=== PATIENT | female | born 1995 | race Two or more races ===

== ENCOUNTER → 2021-11-04 09:08 | Outpatient (BNVA) | payer OTHER, SELFPAY | PROVIDERS: Visit Provider Physician Assistant | DX: S83.194A Other dislocation of right knee, initial encounter (principal); S82.151A Displaced fracture of right tibial tuberosity, initial encounter for closed fracture; W18.30XA Fall on same level, unspecified, initial encounter | CPT/HCPCS: 73564; 99204 ==

== ENCOUNTER → 2023-02-26 13:40 | Outpatient (BNVA) | payer OTHER, SELFPAY | PROVIDERS: Visit Provider Physician Assistant Medical | DX: S50.862A Insect bite (nonvenomous) of left forearm, initial encounter (principal); W57.XXXA Bitten or stung by nonvenomous insect and other nonvenomous arthropods, initial encounter | CPT/HCPCS: 99202 ==

== ENCOUNTER → 2023-06-22 10:33 | Outpatient (BNVA) | payer OTHER, SELFPAY | PROVIDERS: Visit Provider Internal Medicine | DX: S80.01XA Contusion of right knee, initial encounter (principal); W01.0XXA Fall on same level from slipping, tripping and stumbling without subsequent striking against object, initial encounter | CPT/HCPCS: 73562; 99203 ==

== ENCOUNTER → 2023-06-27 11:32 | Outpatient (BNVA) | payer OTHER, SELFPAY | PROVIDERS: Visit Provider Internal Medicine | DX: S80.01XA Contusion of right knee, initial encounter (principal); W01.0XXA Fall on same level from slipping, tripping and stumbling without subsequent striking against object, initial encounter | CPT/HCPCS: 99213 ==

== ENCOUNTER → 2023-07-04 10:31 | Outpatient (BNVA) | payer OTHER, SELFPAY | PROVIDERS: Visit Provider Internal Medicine | DX: S80.01XA Contusion of right knee, initial encounter (principal); W01.0XXA Fall on same level from slipping, tripping and stumbling without subsequent striking against object, initial encounter | CPT/HCPCS: 99213 ==

== ENCOUNTER → 2023-07-11 11:18 | Outpatient (BNVA) | payer OTHER, SELFPAY | PROVIDERS: Visit Provider Internal Medicine | DX: S80.01XA Contusion of right knee, initial encounter (principal); W01.0XXA Fall on same level from slipping, tripping and stumbling without subsequent striking against object, initial encounter | CPT/HCPCS: 99213 ==

== ENCOUNTER → 2023-07-23 11:38 | Outpatient (BNVA) | payer OTHER, SELFPAY | PROVIDERS: Visit Provider Internal Medicine | DX: S80.01XD Contusion of right knee, subsequent encounter (principal); W01.0XXD Fall on same level from slipping, tripping and stumbling without subsequent striking against object, subsequent encounter | CPT/HCPCS: 99213 ==

== ENCOUNTER → 2023-08-01 14:12 | Outpatient (BNVA) | payer OTHER, SELFPAY | PROVIDERS: Visit Provider Internal Medicine | DX: S80.01XD Contusion of right knee, subsequent encounter (principal); W01.0XXD Fall on same level from slipping, tripping and stumbling without subsequent striking against object, subsequent encounter | CPT/HCPCS: 99213 ==

== ENCOUNTER 2023-08-01 17:49 | Outpatient (REF) | payer OTHER, SELFPAY ==
--- NOTE | ~2023-08-01 | MR_ITS ---
EXAMINATION: MR KNEE WITHOUT CONTRAST, RIGHT CLINICAL INFORMATION: Right lateral knee pain. COMPARISON: 06/22/2023 TECHNIQUE: MRI of the knee without contrast was performed using routine sequences on a high-field scanner. FINDINGS: MENISCI: Medial Meniscus: Intact Lateral Meniscus: Discoid morphology. No tears. LIGAMENTS: Cruciate: Intact Collateral: Intact EXTENSOR MECHANISM: Quadriceps and patellar tendons are intact. There is enthesopathic spurring at the patellar tendon insertion on the tibial tuberosity with subtle fragmentation, most consistent with chronic changes of [place]Schlatter's disease. No tendinosis. ARTICULAR CARTILAGE/BONE: Patellofemoral Compartment: Normal trochlear morphology. Articular cartilage appears well-preserved. Normal TT-TG distance (1.1 cm) correcting for the angulation of the axial images. Medial Compartment: Normal Lateral Compartment: Normal JOINT FLUID AND BURSAE: No joint effusion or Kirby's cyst. No bursitis. MR/MR knee RT wo con IMPRESSION: 1. Discoid lateral meniscus. No meniscal tears. No osteochondral injuries. Intact ligaments. 2. Chronic changes of prior [place]-Schlatter's disease.
== END 2023-08-01 17:50 | disposition home or self-care (01) ==
LOC: HO.MRI 17:49
PROVIDERS: Visit Provider Internal Medicine
DX: M25.561 Pain in right knee (principal)
CPT/HCPCS: 73721

== ENCOUNTER → 2023-08-06 08:23 | Outpatient (BNVA) | payer OTHER, SELFPAY | PROVIDERS: Visit Provider Internal Medicine | DX: S80.01XD Contusion of right knee, subsequent encounter (principal); W01.0XXD Fall on same level from slipping, tripping and stumbling without subsequent striking against object, subsequent encounter | CPT/HCPCS: 99213 ==

== ENCOUNTER → 2023-08-13 09:29 | Outpatient (BNVA) | payer OTHER, SELFPAY | PROVIDERS: Visit Provider Internal Medicine | DX: S80.01XD Contusion of right knee, subsequent encounter (principal); W01.0XXD Fall on same level from slipping, tripping and stumbling without subsequent striking against object, subsequent encounter | CPT/HCPCS: 99213 ==

== ENCOUNTER 2023-09-05 09:14 | Outpatient (AMB) | payer OTHER, SELFPAY ==
--- NOTE | 2023-09-05 09:36 | A.OFFVIS_ITS ---
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 MRI done on 08/01/23. Patient reports she was working and one of the kid started running after them and she slipped and fell on her right knee. Currently her knee feels better, however when she is walking, standing for a long time and bending down she tends to have discomfort on top of her knee. She finds relief when taking ibuprofen PRN. 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 She had an MRI performed on 08/01/23. She currently states she has improvement in her pain however she does c/o discomfort at the top of her knee with prolonged standing, walking, and bending down. She finds relief with ibuprofen PRN. 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 Review of Systems Const All systems reviewed & are unremarkable except as noted in HPI and below Physical Exam Const General: cooperative, healthy appearing, comfortable, no acute distress, well developed and alert Orientation/consciousness: patient oriented x3 HEENT Head: Yes normal to inspection, Yes normocephalic and Yes atraumatic Eyes General: appearance normal, both eyes and all related structures Resp Effort & Inspection: normal respiratory effort and able to speak in complete sentences Cardio Rate: regular rate Peripheral pulses: Peripheral pulses 2+ throughout GI Palpation (GI): Soft to palpation Skin Lesions: no lesions Rashes: no rashes Neuro General: patient oriented x3 Extrem Other: Right knee: Skin intact, no erythema or joint effusion. Tenderness over the medial tubercle. Full ROM with crepitus. Negative Michelle?s. No ligamentous laxity. NVI. Results Reviewed Results Reviewed: MRI 08/01/23 Right knee IMPRESSION: 1. Discoid lateral meniscus. No meniscal tears. No osteochondral injuries. Intact ligaments. 2. Chronic changes of prior [place]-Schlatter's disease. Xrays were obtained in the office today and personally reviewed by me of the right knee show mild lateralization of the patella Assessment & Plan Assessment & Plan (1) Patellar tendonitis of right knee: Code(s): M76.51 - Patellar tendinitis, right knee (2) Patella-femoral syndrome: Code(s): M22.2X9 - Patellofemoral disorders, unspecified knee Plan We discussed options which include PT, NSAIDs and injections. The patient will defer on the injection today and proceed with PT and NSAIDs. She will return to work on 09/06/23 full duty without restrictions. If symptoms persist, the patient will contact me for an injection, otherwise, PRN. Orders: Orders XR knee RT 3V Today M17.11 - Unilateral primary osteoarthritis, right knee PT Evaluation and Treatment Today M22.2X9 - Patellofemoral disorders, unspecif ied knee, M76.51 - Patellar tendinitis, right knee Medications: New ibuprofen 800 mg PO Q8H 30 days PRN 90 tabs 3RF pain S52.209D - Unspecified fracture of shaft of unspecified ulna, subsequent encounter for closed fracture with routine healing Patient Instructions: Scribed for Samuel Moody PA-C, by Rajendra Silva quality engineer medical device, on 09/05/2023 at 9:00 AM EST. I, Samuel Moody PA-C, have personally reviewed and agree with the information entered by the scribe. Coding Level of Care Code New Pt Level 3 (36508) Diagnoses Patellar tendonitis of right knee M76.51 Patella-femoral syndrome M22.2X9
== END 2023-09-05 09:59 | disposition home or self-care (01) ==
PROVIDERS: Visit Provider Physician Assistant
DX: M76.51 Patellar tendinitis, right knee (principal); M22.2X1 Patellofemoral disorders, right knee
CPT/HCPCS: 99203

== ENCOUNTER 2023-09-05 09:59 | Outpatient (REF) | payer OTHER, SELFPAY ==
--- NOTE | ~2023-09-05 | XR_ITS ---
EXAMINATION: XR KNEE, RIGHT CLINICAL INFORMATION: Unilateral primary osteoarthritis, right knee COMPARISON: Right knee radiograph 06/22/2023, right knee MRI 08/01/2023 TECHNIQUE: AP standing view of both knees and lateral and sunrise view of the right knee. FINDINGS: No fracture or right knee joint effusion. Alignment is anatomic. Joint spaces are maintained. No abnormal soft tissue calcification. Evidence of old right [place]-Schlatter's disease. XR/XR knee RT 3V IMPRESSION: No significant bony abnormality.
== END 2023-09-05 10:00 | disposition home or self-care (01) ==
LOC: HO.HOSX 09:59
PROVIDERS: Visit Provider Physician Assistant
DX: M17.11 Unilateral primary osteoarthritis, right knee (principal); M76.51 Patellar tendinitis, right knee
CPT/HCPCS: 73562; 99202

== ENCOUNTER 2023-10-27 12:54 | Emergency (ER) | payer OTHER, BC, SELFPAY ==
--- NOTE | 2023-10-27 13:10 | ED_ITS ---
HPI - Seizure General Chief Complaint: Seizure Stated Complaint: seizure witnessed Time Seen by Provider: 10/27/23 19:54 Source: patient Mode of arrival: ambulatory Limitations: no limitations History of Present Illness HPI Narrative: 28 yo female with history of seizures (as a child) here after witnessed seizure today by family. Not currently on medication. Complaints of feeling tired, no other complaints. Patient reports her last seizure was at the age of 13. She has not currently on any antiepileptics. She does not currently have a neurologist. She reports this morning when she woke up she was having a feeling of tingling over her arms and legs bilaterally. She reports that when she used to have seizures she would typically have an aura that was similar to this. She sat at the breakfast table and per dad the patient started to have a tonic-clonic seizure which lasted approximately 1-2 minutes and then self-resolved. As soon as he saw her having the seizure he grabbed her and held her so she had no fall or injury with the seizure. She roused independently. There was no incontinence of urine or stool. There was no tongue bite. She did not have a postictal state per family. She does plain of feeling tired but has no complaints of headache, neck pain, neck stiffness, chest pain, abdominal pain, vision changes, vomiting. No recent illnesses Related Data Previous Rx's ?Medication ?Instructions ?Recorded ibuprofen 800 mg tablet 800 mg PO Q8H PRN pain 30 days #90 09/05/23 tabs Allergies Allergy/AdvReac Type Severity Reaction Status Date / Time phenobarbital [From Luminal] Allergy Unknown Verified 10/27/23 13:13 Review of Systems 2 Review of Systems: Yes all other systems are reviewed and are negative Constitutional: Constitutional: Reports no additional constitutional complaints, Denies body ache(s), Denies chills, Denies fever(s), Denies headache(s) and Denies weakness Eyes: Eyes: Reports no additional eye complaints and Denies change in vision ENT: Reports system reviewed and no additional complaints, except as documented, Denies dizziness, Denies headache(s), Denies nasal congestion, Denies nasal discharge and Denies neck pain Cardiovascular: Cardiovascular: Reports no additional cardiovascular complaints, Denies chest pain, Denies leg edema and Denies dyspnea Respiratory: Respiratory: Reports no additional respiratory complaints, Denies cough and Denies dyspnea Gastrointestinal: Gastrointestinal: Reports no additional gastrointestinal complaints, Denies abdominal pain, Denies diarrhea, Denies nausea and Denies vomiting Genitourinary: Genitourinary: Reports no additional female genitourinary complaints and Denies urinary incontinence Musculoskeletal: Musculoskeletal: Reports no additional musculoskeletal complaints, Denies back pain, Denies arthralgias, Denies joint swelling, Denies neck pain, Denies numbness and Reports tingling Integumentary/Breasts: Skin/Breast: Reports system reviewed and no additional complaints, except as docu and Denies rash Neurologic: Reports system reviewed and no additional complaints, except as documented, Denies Abnormal speech present, Denies dizziness, Denies headache(s), Denies numbness, Reports seizure-like activity, Reports tingling and Denies weakness PMFSH Past Medical History Attestation statement: The following information was validated with the patient. 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 Physical Exam 2 Vital Signs: Vital Signs: Last Vital Signs Temp 97.4 F 10/27/23 18:04 Pulse 77 10/27/23 18:04 Resp 20 10/27/23 18:04 BP 128/69 10/27/23 18:04 Pulse Ox 98 10/27/23 18:04 O2 Del Method Room Air 10/27/23 18:04 BMI result Body Mass Index 32.5 Const: General: cooperative, healthy appearing, comfortable and no acute distress Orientation/consciousness: patient oriented x3 Limitations: no limitations HEENT: Head: Yes normal to inspection Ears: hearing grossly normal bilaterally and TM's normal bilaterally General nose exam: Normal external nose present Face and sinus: Yes normal facial exam Mouth: Normal oral and palatal mucosa present Throat: Yes posterior oropharynx normal Eyes: General: appearance normal, both eyes and all related structures P upils: Equal, round and reactive pupils present Neck: Neck: Yes normal visual inspection, Yes full ROM, Yes no lymphadenopathy and Yes no meningeal signs Chest: Chest palpation & inspection: normal inspection of the chest Resp: Effort & Inspection: normal respiratory effort Auscultation: clear to auscultation bilaterally Cardio: Rate: regular rate Rhythm: regular rhythm Peripheral pulses: P eripheral pulses 2+ throughout GI: Inspection: Yes normal to inspection Palpation (GI): Soft to palpation and nontender Auscultation: normal bowel sounds Back/Spine/Pelvis: Thoracic/Lumbar Spine: thoracic and lumbar spine normal to inspection Skin: General skin exam: no rashes or lesions noted Neuro: General: patient oriented x3, moves all extremities, no meningeal signs, no focal motor deficits and normal sensation to monofilament Cranial nerves: Yes Equal, round and reactive pupils present Cognition (Neuro): n ormal cognition Speech: No Abnormal speech present Gait exam (Neuro): N ormal gait present Motor exam (neuro): 5/5 motor strength present throughout Sensory Exam: Normal double simultaneous stimulation for sensation C oordination: [id number] test normal, [id number] test normal and tandem gait normal Extrem: General: Yes normal to inspection, Yes no pedal edema and Yes no calf tenderness Course Course Course Narrative: This is a rapid medical exam. Deferred additional HPI, ROS, PE to primary provider. 28 yo female with history of seizures (as a child) here after witnessed seizure today by family. Not currently on medication. Complaints of feeling tired, no other complaints. Will obtain labs, UA, ur preg VSS -A.Elysia BURNHAM Reevaluation(s) Reevaluation #1: patient was monitored in the ER for 7 hours with no additional seizure activity. Her labs are unremarkable. I will discharge her home have her follow up outpatient with her primary care doctor. At this time I would not prescribe her antiepileptics. I would recommend that she avoid driving until she is seen by her primary care doctor and they can discuss this further. Reviewed worrisome signs and symptoms with the patient and her parent. They are comfortable plan for discharge home. Medical Decision Making Medical Decision Making MDM Narrative: 28 yo female with history of seizures (as a child) here after witnessed seizure today by family. Not currently on medication. Complaints of feeling tired, no other complaints. Patient reports her last seizure was at the age of 13. She has not currently on any antiepileptics. She does not currently have a neurologist. She reports this morning when she woke up she was having a feeling of tingling over her arms and legs bilaterally. She reports that when she used to have seizures she would typically have an aura that was similar to this. She sat at the breakfast table and per dad the patient started to have a tonic-clonic seizure which lasted approximately 1-2 minutes and then self-resolved. As soon as he saw her having the seizure he grabbed her and held her so she had no fall or injury with the seizure. She roused independently. There was no incontinence of urine or stool. There was no tongue bite. She did not have a postictal state per family. She does plain of feeling tired but has no complaints of headache, neck pain, neck stiffness, chest pain, abdominal pain, vision changes, vomiting. No recent illnesses no reports of injury or trauma. No focal neurological deficits on exam. Vitals are stable. patient back to baseline Will obtain labs, observe patient with no focal deficits with a history of seizures as a child, with no reports of head strike or injury and patient being back to baseline I do not believe that she needs a CT of her head. This was discussed with the patient her mother and they agreed. Differential Diagnosis Differential Diagnoses: The differential diagnosis associated with the presentation includes seizure low suspicion for ICH, space-occupying lesion, meningitis, encephalitis Admission/Observation Consideration of admission/observation: Escalation of care including admission/observation considered see discussion and core Lab Data MDM Lab Attestation statement: I reviewed the patient's lab results. 10/27/23 13:32 10/27/23 13:32 Labs: Lab Results 10/27/23 10/27/23 Range/Units 13:32 13:34 WBC 6.4 (4.8-10.8) X10*3/uL RBC 4.09 L (4.20-5.50) X10*6/uL Hgb 12.0 (12.0-16.0) g/dl Hct 36.6 L (37.0-47.0) % MCV 89.5 (80.0-98.0) fL MCH 29.3 (27.0-33.0) pg MCHC 32.8 (31.0-35.0) g/dl RDW 14.1 (11.0-16.0) % Plt Count 411 H (160-400) X10*3/uL MPV 8.4 L (9.4-12.3) fL Immature Gran % (Auto) 0.3 (0.0-0.4) % Neut % (Auto) 55.6 (45-73) % Lymph % (Auto) 34.4 (20-40) % [place] % (Auto) 8.6 (2-11) % Eos % (Auto) 0.5 (0-4) % Baso % (Auto) 0.6 (0-2) % Lymph # (Auto) 2.2 (1.2-4.9) X10*3/uL [place] # (Auto) 0.6 (0.1-1.2) X10*3/uL Eos # (Auto) 0.0 (0.0-0.4) X10*3/uL Baso # (Auto) 0.0 (0.0-0.2) X10*3/uL Abs Immat Gran (auto) 0.02 (0.00-0.03) X10*3/uL Absolute Neuts (auto) 3.5 (2.0-8.3) x10*3/uL Absolute Nucleated RBC 0.000 (0.0-0.012) X10*3/uL Nucleated RBC % (auto) 0.0 (0.0-0.2) /100WBC Sodium 139 (135-145) mmol/L Potassium 4.0 (3.3-5.1) mmol/L Chloride 105 (96-108) mmol/L Carbon Dioxide 27 (22-29) mmol/L Anion Gap 11 L (12-20) BUN 9 (9-16) mg/dL Creatinine 0.68 (0.5-1.4) mg/dL Estim Creat Clear Calc 108.1 Estimated GFR > 60 Random Glucose 95 (60-115) mg/dL Lactic Acid 0.9 (0.5-2.0) mmol/L Calcium 9.1 (8.4-10.2) mg/dL Total Bilirubin 0.3 (0.0-1.0) mg/dL Direct Bilirubin 0.1 (0.0-0.5) mg/dL AST 13 (5-31) U/L ALT 10 (0-31) U/L Alkaline Phosphatase 47 (39-117) U/L Total Protein 7.9 (6.5-8.0) g/dL Albumin 4.1 (3.5-5.0) g/dL Urine Color Yellow Urine Appearance Clear Urine pH 8.5 (5.0-9.0) Ur Specific [place] 1.025 (1.005-1.025) Urine Protein Trace (Neg-Trace) mg/dL Urine Glucose (UA) Negative (Negative) mg/dL Urine Ketones Negative (Negative) mg/dL Urine Blood Negative (Negative) Urine Nitrite Negative (Negative) Ur Leukocyte Esterase Negative (Negative) Urine Test NEGATIVE (NEGATIVE) Urine Opiates Screen Not Detected (Not Detect) Ur Buprenorphine Scrn Not Detected (Not Detect) ng/mL Ur Oxycodone Screen Not Detected (Not Detect) ng/mL Urine Methadone Screen Not Detected (Not Detect) ng/mL Urine Fentanyl Screen Not Detected (Not Detect) Ur Barbiturates Screen Not Detected (Not Detect) Ur Phencyclidine Scrn Not Detected (Not Detect) Ur Amphetamines Screen Not Detected (Not Detect) U Benzodiazepines Scrn Not Detected (Not Detect) Urine Cocaine Screen Not Detected (Not Detect) U Marijuana (THC) Screen Not Detected (Not Detect) Ethyl Alcohol < 10 mg/dL Independent Historian Clinical information obtained from an independent historian. History obtained from or confirmed by: Parent Tests considered The following testing was considered but not selected: see discussion above Prescription Management I considered prescription management with: Other ( antiepileptic) Discharge Plan Discharge Clinical Impression: New onset seizure Patient Disposition: Home, Self-Care Instructions: New-Onset Seizure in Adults (ED) Additional Instructions: You cannot drive until you see your PCP Return for any worsening symptoms Prescriptions: No Action ibuprofen 800 mg tablet 800 mg PO Q8H PRN (Reason: pain) 30 Days Qty: 90 3RF Referrals: Leo Braun MD [Primary Care Provider] - 1 week Print Language: Luxem[place]ish
[2023-10-27 13:11] VITALS: BP 129/95; PULSE 73; RESP 18; TEMP 36.6; O2SAT 100; BMI 32.5
[2023-10-27 13:39] LABS: MANUAL DIFF FLAG NO
[2023-10-27 13:42] LABS: Appearance Urine Clear; Color Urine Yellow; Glucose Urine UA Negative (Negative); Leukocyte Esterase Urine Negative (Negative); Nitrite Urine Negative (Negative); PH 8.5 (5.0-9.0); Specific Gravity - Urine 1.025 (1.005-1.025); Urine Blood Negative (Negative); Urine Ketones Negative (Negative); Urine Protein Trace mg/dL (Neg-Trace)
[2023-10-27 13:42] LABS: Basophils Percent Auto 0.6 % (0-2); Eosinophils Percent Auto 0.5 % (0-4); Hematocrit 36.6 % (37.0-47.0); Imm Gran Abs Auto 0.02 X10*3/uL (0.00-0.03); Imm Gran Pct Auto 0.3 % (0.0-0.4); Lymphocytes Absolute Auto 2.2 X10*3/uL (1.2-4.9); Lymphocytes Percent Auto 34.4 % (20-40); Mean Corpuscular HGB Conc 32.8 g/dl (31.0-35.0); Mean Corpuscular Hemoglobin 29.3 pg (27.0-33.0); Mean Corpuscular Volume 89.5 fL (80.0-98.0); Mean Platelet Volume 8.4 fL (9.4-12.3); Monocytes Absolute Auto 0.6 X10*3/uL (0.1-1.2); Monocytes Percent Auto 8.6 % (2-11); Neutrophils Absolute Auto 3.5 x10*3/uL (2.0-8.3); Neutrophils Percent Auto 55.6 % (45-73); Platelet Count 411 X10*3/uL (160-400); Red Blood Count 4.09 X10*6/uL (4.20-5.50); Red Cell Distribution Width 14.1 % (11.0-16.0); White Blood Count 6.4 X10*3/uL (4.8-10.8)
[2023-10-27 13:43] LABS: UPreg QC Valid YES; Urine Pregnancy NEGATIVE (NEGATIVE)
[2023-10-27 13:54] LABS: Amphetamine Screen Urine Not Detected (Not Detect); Barbiturates, Urine Not Detected (Not Detect); Benzodiazepines Screen Urine Not Detected (Not Detect); Buprenorphine Scr Not Detected (Not Detect); Cannabinoid Screen Urine Not Detected (Not Detect); Cocaine Screen Urine Not Detected (Not Detect); Fentanyl, urine Not Detected (Not Detect); Methadone Screen, Urine Not Detected (Not Detect); Opiate Screen Urine Not Detected (Not Detect); Oxycodone Screen Urine Not Detected (Not Detect); Phencyclidine Screen Urine Not Detected (Not Detect)
[2023-10-27 13:54] LABS: Lactic Acid 0.9 mmol/L (0.5-2.0)
[2023-10-27 14:11] LABS: Alanine Aminotransferase 10 U/L (0-31); Albumin Level 4.1 g/dL (3.5-5.0); Alkaline Phosphatase 47 U/L (39-117); Anion Gap 11 (12-20); Aspartate Amino Transferase 13 U/L (5-31); Bilirubin Direct 0.1 mg/dL (0.0-0.5); Bilirubin Total 0.3 mg/dL (0.0-1.0); Blood Urea Nitrogen 9 mg/dL (9-16); Calcium 9.1 mg/dL (8.4-10.2); Carbon Dioxide 27 mmol/L (22-29); Chloride 105 mmol/L (96-108); Creatinine Clr Calc Pharmacy 108.1; Estimated Glomerular Filt Rate > 60; Ethanol < 10 mg/dL; Glucose Random 95 mg/dL (60-115); Sodium 139 mmol/L (135-145); Total Protein 7.9 g/dL (6.5-8.0)
[2023-10-27 18:04] VITALS: BP 128/69; PULSE 77; RESP 20; TEMP 36.3; O2SAT 98
[2023-10-27 20:23] VITALS: BP 127/89; PULSE 85; RESP 14; TEMP 36.8; O2SAT 100
[2023-10-27 20:27] VITALS: BP 127/89; PULSE 85; RESP 14; TEMP 36.8; O2SAT 100
== END 2023-10-27 20:28 | disposition home or self-care (01) ==
PROVIDERS: Nurse Practitioner Family; Emergency Provider Internal Medicine; PCP Family Medicine
DX: R56.9 Unspecified convulsions (principal)
CPT/HCPCS: 36415; 80048; 80076; 80307; 81003; 81025; 83605; 85025; 99283

== ENCOUNTER 2023-10-29 17:08 | Emergency (ER) | payer OTHER, BC, SELFPAY ==
--- NOTE | ~2023-10-29 | CT_ITS ---
EXAMINATION: CT HEAD WITHOUT CONTRAST CLINICAL INFORMATION: Recurrent seizure COMPARISON: None available. TECHNIQUE: Contiguous axial imaging was performed from the skull base to vertex without intravenous administration of contrast. This CT examination was performed using dose optimization techniques as appropriate, variously including the following: *Automated exposure control *Adjustment of mA and/or kV according to patient size (this includes techniques or standardized protocols for targeted exams where dose is matched to indication/reason for exam; i.e. extremities or head) *Use of iterative reconstruction technique DLP: 627 mGy-cm FINDINGS: The lateral, third and fourth ventricles are normally outlined. The cortical sulci and basal cisterns are normally outlined as well. There is no acute territorial defect, hemorrhage or midline shift. The extra-axial unremarkable. Calvarium/scalp: Intact. Maxillofacial sinuses and mastoids: Clear as visualized. CT/CT head/brain wo IV con IMPRESSION: No acute intracranial pathology.
[2023-10-29 17:46] VITALS: BP 134/87; PULSE 84; RESP 16; TEMP 36.6; O2SAT 100; BMI 33.2
--- NOTE | 2023-10-29 17:47 | ED_ITS ---
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 Patient herself denies any recent fever/chills/visual disturbance or hearing changes and denies any history of camping or hiking. Patient was evaluated here on Sunday and then released and given instructions to follow-up shortly with her primary care doctor and neurology follow-up. Patient has had a seizure on Sunday as well and then again at 02:30 and 0430 this morning and states that she would feel tingly all over her body just prior to the events, there has been no history of tongue biting or urinary incontinence. Related Data Previous Rx's ?Medication ?Instructions ?Recorded ibuprofen 800 mg tablet 800 mg PO Q8H PRN pain 30 days #90 09/05/23 tabs Allergies Allergy/AdvReac Type Severity Reaction Status Date / Time phenobarbital [From Luminal] Allergy Unknown Verified 10/29/23 17:49 Review of Systems 2 Review of Systems: Pertinent positives and negatives as stated in HPI PMF Past Medical History Source: nursing notes reviewed Social History Social History Alcohol intake: never Patient Tobacco Use Status: Never used Tobacco Smoked in Last 30 Days: No Use of substances other than those prescribed or required for medical reasons: No Advance Directives: No Advance Directives Information Provided: No Current occupational status: employed 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 GENERAL: Well developed, well nourished, in no acute distress. HEAD: Normocephalic/atraumatic EYES: PERRLA, EOMI EARS: Ext canals without abnormality NOSE: Nares patent bilateral OROPHARYNX: no oral lesions noted, posterior pharynx clear NECK: Supple, no adenopathy LUNGS: Normal breath sounds. No adventitious sounds or accessory muscle use. SpO2<100> CARDIOVASCULAR: Regular rate and rhythm without noted murmurs ABDOMEN: Soft, non-tender, non-distended with bowel sounds. MUSCULOSKELETAL: No tenderness, deformities, or effusions noted on gross inspection. EXTREMITIES: No cyanosis, clubbing or edema. SKIN: Inspection of the skin reveals no rashes NEUROLOGIC: Alert and oriented x 4. Strength and sensation to light touch were grossly intact x 4, cranial nerves 2-12 are grossly intact. Course Course Course Narrative: This is an RME: Additional HPI, ROS, PE not included below will be deferred to primary provider. RME assessment and note performed by: Veronica Moreira PA-C This is a 74-[id number]-uuf-female, with a hx of seizures as a child, who presents to the emergency department accompanied by her father, with complaints of multiple seizures. Father reports that when she has these episodes she gets very tight Pt was seen on 10/26 due to seizures, last known seizure was at the age of 13. She is not currently on any antiepileptics, and is not currently seen by a neurologist. Father reports that she had two seizures this AM and another one this afternoon, in total has had 3 seizures today. Has PCP appt tomorrow. Plan: Labs, UA Medical Decision Making Medical Decision Making MDM Narrative: 28-year-old female with history and clinical presentation, DDX: New recurrence of seizures, recurrent seizures since Sunday, only new medications recently have been cephalexin and Pyridium for urinary tract infection. Patient is otherwise denying any use of illicit substances/alcohol use and has no other prescription medications. She is currently working as well as attending school but otherwise denies any new stressors or increased stressors. I reviewed all investigations and hematologic indices are negative for leukocytosis/anemia/thrombocytopenia. Chemistry indices negative for AYLA/electrolyte or liver enzyme derangements. Urinalysis is negative for UTI or hematuria and urine is negative. UDS is negative and alcohol is negative. CT scan is negative for acute intracranial pathologies. Patient provided with initial dose of Keppra and will be discharged on b.i.d. dosing with strict instructions to follow-up with the primary care doctor today and discuss referral for Neurology and further outpatient workup. Strict return precautions were provided. Differential Diagnosis Differential Diagnoses: The differential diagnosis associated with the presentation includes Please see the discussion above Admission/Observation Consideration of admission/observation: Escalation of care including admission/observation considered Please see the discussion above Lab Data MDM Lab Attestation statement: I reviewed the patient's lab results. Please see the discussion above 10/29/23 18:03 10/29/23 18:03 Labs: Lab Results 10/29/23 10/30/23 Range/Units 18:03 00:25 WBC 6.8 (4.8-10.8) X10*3/uL RBC 4.09 L (4.20-5.50) X10*6/uL Hgb 12.1 (12.0-16.0) g/dl Hct 36.8 L (37.0-47.0) % MCV 90.0 (80.0-98.0) fL MCH 29.6 (27.0-33.0) pg MCHC 32.9 (31.0-35.0) g/dl RDW 14.0 (11.0-16.0) % Plt Count 394 (160-400) X10*3/uL MPV 8.4 L (9.4-12.3) fL Immature Gran % (Auto) 0.3 (0.0-0.4) % Neut % (Auto) 60.5 (45-73) % Lymph % (Auto) 28.6 (20-40) % [place] % (Auto) 9.2 (2-11) % Eos % (Auto) 1.0 (0-4) % Baso % (Auto) 0.4 (0-2) % Lymph # (Auto) 1.9 (1.2-4.9) X10*3/uL [place] # (Auto) 0.6 (0.1-1.2) X10*3/uL Eos # (Auto) 0.1 (0.0-0.4) X10*3/uL Baso # (Auto) 0.0 (0.0-0.2) X10*3/uL Abs Immat Gran (auto) 0.02 (0.00-0.03) X10*3/uL Absolute Neuts (auto) 4.1 (2.0-8.3) x10*3/uL Absolute Nucleated RBC 0.000 (0.0-0.012) X10*3/uL Nucleated RBC % (auto) 0.0 (0.0-0.2) /100WBC Sodium 138 (135-145) mmol/L Potassium 3.8 (3.3-5.1) mmol/L Chloride 104 (96-108) mmol/L Carbon Dioxide 24 (22-29) mmol/L Anion Gap 14 (12-20) BUN 8 L (9-16) mg/dL Creatinine 0.69 (0.5-1.4) mg/dL Estim Creat Clear Calc 107.7 Estimated GFR > 60 Random Glucose 98 (60-115) mg/dL Lactic Acid 1.0 (0.5-2.0) mmol/L Calcium 9.7 D (8.4-10.2) mg/dL Total Bilirubin 0.2 (0.0-1.0) mg/dL Direct Bilirubin < 0.2 (0.0-0.5) mg/dL AST 14 (5-31) U/L ALT 8 (0-31) U/L Alkaline Phosphatase 49 (39-117) U/L Total Protein 8.2 H (6.5-8.0) g/dL Albumin 4.3 (3.5-5.0) g/dL Urine Color Yellow Urine Appearance Clear Urine pH 6.5 (5.0-9.0) Ur Specific [place] >= 1.030 H (1.005-1.025) Urine Protein Negative (Neg-Trace) mg/dL Urine Glucose (UA) Negative (Negative) mg/dL Urine Ketones Trace (Negative) mg/dL Urine Blood Negative (Negative) Urine Nitrite Negative (Negative) Ur Leukocyte Esterase Trace H (Negative) Urine RBC 0-2 (0-2) /HPF Urine WBC 0-5 (0-5) /HPF Ur Squamous Epith Cells 3-5 (0-2) /HPF Urine Bacteria 1+ (None Seen) Hyaline Casts 0-2 (0-2) /LPF Urine Test NEGATIVE (NEGATIVE) Urine Opiates Screen Not Detected (Not Detect) Ur Buprenorphine Scrn Not Detected (Not Detect) ng/mL Ur Oxycodone Screen Not Detected (Not Detect) ng/mL Urine Methadone Screen Not Detected (Not Detect) ng/mL Urine Fentanyl Screen Not Detected (Not Detect) Ur Barbiturates Screen Not Detected (Not Detect) Ur Phencyclidine Scrn Not Detected (Not Detect) Ur Amphetamines Screen Not Detected (Not Detect) U Benzodiazepines Scrn Not Detected (Not Detect) Urine Cocaine Screen Not Detected (Not Detect) U Marijuana (THC) Screen Not Detected (Not Detect) Ethyl Alcohol < 10 mg/dL Radiology Impression Discussion of test interpretation with radiology: I have reviewed the radiologist's reading. Radiologist Impression: Please see the discussion above External Record Review External record reviewed: Outpatient record, Prior outpatient labs and Prior outpatient radiology Critical Care Time Critical Care Time Critical Care Time: Yes Total Critical Care Time: 60 Attestation: I personally attest to this time spent taking care of the patient. Discharge Plan Discharge Clinical Impression: Recurrent seizures Patient Disposition: Home, Self-Care Instructions: Recurrent Seizures in Adults (ED) Additional Instructions: 1. You have been prescribed a new medication for seizures and should take the medication as directed. 2. Keep your scheduled appointment with your primary care doctor today. 3. I have also provided you with a referral for Neurology, the information is located below and you may call the office at your earliest convenience set up an appointment for re-evaluation. Do not hesitate to return to the emergency room for any worsening of symptoms. Prescriptions: No Action ibuprofen 800 mg tablet 800 mg PO Q8H PRN (Reason: pain) 30 Days Qty: 90 3RF Referrals: Leo Braun MD [Primary Care Provider] - Machelle Kessler MD [Physician] - Print Language: Ivorian
[2023-10-29 18:08] LABS: MANUAL DIFF FLAG NO
[2023-10-29 18:09] LABS: Basophils Percent Auto 0.4 % (0-2); Eosinophils Absolute Auto 0.1 X10*3/uL (0.0-0.4); Hematocrit 36.8 % (37.0-47.0); Hemoglobin 12.1 g/dl (12.0-16.0); Imm Gran Abs Auto 0.02 X10*3/uL (0.00-0.03); Imm Gran Pct Auto 0.3 % (0.0-0.4); Lymphocytes Absolute Auto 1.9 X10*3/uL (1.2-4.9); Lymphocytes Percent Auto 28.6 % (20-40); Mean Corpuscular HGB Conc 32.9 g/dl (31.0-35.0); Mean Corpuscular Hemoglobin 29.6 pg (27.0-33.0); Mean Platelet Volume 8.4 fL (9.4-12.3); Monocytes Absolute Auto 0.6 X10*3/uL (0.1-1.2); Monocytes Percent Auto 9.2 % (2-11); Neutrophils Absolute Auto 4.1 x10*3/uL (2.0-8.3); Neutrophils Percent Auto 60.5 % (45-73); Platelet Count 394 X10*3/uL (160-400); Red Blood Count 4.09 X10*6/uL (4.20-5.50); White Blood Count 6.8 X10*3/uL (4.8-10.8)
[2023-10-29 18:26] LABS: Alanine Aminotransferase 8 U/L (0-31); Albumin Level 4.3 g/dL (3.5-5.0); Alkaline Phosphatase 49 U/L (39-117); Anion Gap 14 (12-20); Aspartate Amino Transferase 14 U/L (5-31); Bilirubin Direct < 0.2 mg/dL (0.0-0.5); Bilirubin Total 0.2 mg/dL (0.0-1.0); Blood Urea Nitrogen 8 mg/dL (9-16); Calcium 9.7 mg/dL (8.4-10.2); Carbon Dioxide 24 mmol/L (22-29); Chloride 104 mmol/L (96-108); Creatinine Clr Calc Pharmacy 107.7; Estimated Glomerular Filt Rate > 60; Glucose Random 98 mg/dL (60-115); Potassium 3.8 mmol/L (3.3-5.1); Sodium 138 mmol/L (135-145); Total Protein 8.2 g/dL (6.5-8.0)
[2023-10-29 18:34] LABS: Ethanol < 10 mg/dL
[2023-10-29 22:03] VITALS: BP 134/94; PULSE 91; RESP 18; TEMP 36.5; O2SAT 96
[2023-10-29 23:01] VITALS: BP 131/101; PULSE 90; RESP 18; TEMP 36.9; O2SAT 100
--- NOTE | 2023-10-29 23:03 | PC.NURSE ---
Patient states a few minutes ago she started to feel numbness inside my head. Vitals signs obtained on patient and DBP noted to be slightly elevated but close to where it was last vital check. Patient is alert and oriented, answering all questions appropriately.
[2023-10-30 00:08] VITALS: BP 123/86; PULSE 55; RESP 17; TEMP 36.8; O2SAT 100
--- NOTE | 2023-10-30 00:25 | PC.NURSE ---
pt brought to ed bed 7, mom and dad report patient had absent seizure where patient initially stated she felt tingling sensation of hands and legs, then experienced constricted hands and was staring off into space. episode lasted approx 15 minutes and after patient was back to baseline. this episode was at 1630 10/29/2023 and pt/family deny any episodes since. pt denies any new stressors/drug/alcohol use however reports recently given cephalexin for uti. pt reports she stopped taking this 10 days ago d/t diarrhea. this am pt had green colored diarrhea 1 episode. pt denies cp/sob/n/v/d at this time, ambulatory with steady gait to bathroom. axox4. neuros intact. seizure pads in place. nsr on monitor. resp even and unlabored. awaiting primary eval by ed provider. nad. call estrada within reach.
[2023-10-30 00:33] LABS: Appearance Urine Clear; Color Urine Yellow; Glucose Urine UA Negative (Negative); Leukocyte Esterase Urine Trace (Negative); Nitrite Urine Negative (Negative); PH 6.5 (5.0-9.0); Specific Gravity - Urine >= 1.030 (1.005-1.025); UMIC TRIGGER UACC YES; Urine Blood Negative (Negative); Urine Ketones Trace mg/dL (Negative); Urine Protein Negative (Neg-Trace)
[2023-10-30 00:34] LABS: Urine Pregnancy NEGATIVE (NEGATIVE)
[2023-10-30 00:35] LABS: UPreg QC Valid YES
[2023-10-30 00:49] LABS: Bacteria Urine 1+ (None Seen); Hyaline Casts Urine 0-2 /LPF (0-2); RBC Urine 0-2 /HPF (0-2); WBC Urine 0-5 /HPF (0-5)
[2023-10-30 00:50] LABS: Amphetamine Screen Urine Not Detected (Not Detect); Barbiturates, Urine Not Detected (Not Detect); Benzodiazepines Screen Urine Not Detected (Not Detect); Buprenorphine Scr Not Detected (Not Detect); Cannabinoid Screen Urine Not Detected (Not Detect); Cocaine Screen Urine Not Detected (Not Detect); Fentanyl, urine Not Detected (Not Detect); Methadone Screen, Urine Not Detected (Not Detect); Opiate Screen Urine Not Detected (Not Detect); Oxycodone Screen Urine Not Detected (Not Detect); Phencyclidine Screen Urine Not Detected (Not Detect)
[2023-10-30 03:41] VITALS: BP 107/71; PULSE 67; RESP 17; TEMP 36.4; O2SAT 98
[2023-10-30 05:57] VITALS: BP 107/68; PULSE 66; RESP 17; TEMP 36.8; O2SAT 98
[2023-10-30] MEDS: levETIRAcetam 500 MG TABLET PO (06:53)
[2023-10-30 07:04] VITALS: BP 107/68; PULSE 66; RESP 17; TEMP 36.8; O2SAT 98
== END 2023-10-30 07:05 | disposition home or self-care (01) ==
PROVIDERS: Physician Assistant Medical; Emergency Provider Student in an Organized Health Care Education/Training Program; PCP Family Medicine
DX: G40.802 Other epilepsy, not intractable, without status epilepticus (principal); Z87.440 Personal history of urinary (tract) infections; Z79.899 Other long term (current) drug therapy
CPT/HCPCS: 36415; 70450; 80048; 80076; 80307; 81001; 81025; 83605; 85025; 99284

== ENCOUNTER 2024-01-09 10:32 | Outpatient (REF) | payer OTHER, BC, SELFPAY ==
--- NOTE | ~2024-01-09 | MR_ITS ---
EXAMINATION: MR BRAIN WITHOUT AND WITH CONTRAST CLINICAL INFORMATION: 28-year-old with seizures since October. COMPARISON: 10/30/2023 CT brain. TECHNIQUE: Multiplanar, multisequence MRI of the brain was obtained before and after the intravenous administration of 17.5 mL Gadavist. FINDINGS: Brain Volume: Within normal limits within the limitations of qualitative assessment. Structural: No malformations. Brain and Meninges: DWI sequence demonstrates no restricted diffusion to suggest acute or subacute cerebral ischemia. The brain parenchyma is normal in morphology and signal intensity. Gradient refocused imaging demonstrates no abnormal susceptibility-weighted signal loss to suggest hemorrhage, hemosiderin staining or abnormal mineralization. The mesial temporal lobe structures are bilaterally symmetric and are normal in morphology and signal intensity. No intracranial mass lesions, extra-axial fluid collections, space-occupying process, mass effect or pathologic intracranial enhancement are identified. There are scattered foci of dystrophic dural-based calcification on both sides of the falx cerebri bilaterally similar to the prior CT. Ventricles and Subarachnoid Spaces: The ventricular system and subarachnoid spaces are within normal range; there is no hydrocephalus. Orbital Structures: The visualized orbital structures are grossly unremarkable within the limitations of the study. Vascular: Signal voids are noted in the visualized major intracranial vessels. Osseous Structures, Sinuses/Mastoids, Extracranial Soft Tissues: The osseous structures appear grossly intact within the limitations of the study. There are minimal retained secretions in the right mastoid air cells. There is a mildly prominent adenoid pad and there are some slightly prominent IJ chain lymph nodes, left more than right, likely reactive. Follow-up clinically. MR/MR head/brain wo/w con IMPRESSION: 1. Normal MRI of the brain without and with contrast. 2. Mildly prominent adenoid pad and IJ chain lymph nodes, likely reactive. Follow-up clinically. Electronically signed by: Lito Dunbar MD 02/06/2024 05:09 PM EDT
[2024-01-09] MEDS: gadobutroL 7.5 ML VIAL IVPUSH (12:06)
== END 2024-01-09 10:33 | disposition home or self-care (01) ==
LOC: HO.MRI 10:32
PROVIDERS: PCP Family Medicine; Visit Provider Psychiatry & Neurology Neurology
DX: G40.909 Epilepsy, unspecified, not intractable, without status epilepticus (principal)
CPT/HCPCS: 70553; A9585